=== PATIENT | female | born 1970 | race Caucasian/White ===

== ENCOUNTER 2018-04-14 06:14 | Emergency (ER) | payer BC ==
[2018-04-14] MEDS ORDERED: TORAdol 30 mg Injection ONE (06:54)
[2018-04-14] MEDS ORDERED: Zofran 4 MG/2 ML VIAL ONE (06:54)
[2018-04-14] MEDS ORDERED: Zofran 4 MG/2 ML VIAL IV ONE (06:54)
[2018-04-14] MEDS ORDERED: Sodium Chloride 0.9% 1000 ML 1,000 ML IV STA (06:54)
[2018-04-14] MEDS ORDERED: TORAdol 30 mg Injection IV ONE (06:54)
[2018-04-14] MEDS ORDERED: Sodium Chloride 0.9% 1000 ML 1,000 ML ONE (06:54)
--- NOTE | 2018-04-14 07:00 | ERPHSYRPT ---
- History of Present Illness Time Seen by Provider: 04/14/18 06:50 Source: patient Exam Limitations: no limitations Patient Subjective Stated Complaint: bladder pain and pain when trying to urinate Triage Nursing Assessment: Pt began having pain when urinating last night at approximately 2200, frequency, hematuria, pain is in bladder and urethra, drank 5 bottles of water trying to flush it out, rates pain 10/10, BP 172/105, tachycardic, appears to be in significant pain Physician History: 48 y/o female comes to the ER with complaints of dysuria, increase urgency, blood in the urine and lower abdominal discomfort that started last night. Pt describes the pain as burning, constant, 10/10, only with urination and pt has not taken any pain meds. Pt arrives with HR of 125. Pt also admits to nausea, but denies any fever, chills, vomiting, back pain, or polyuria. Timing/Duration: yesterday Activites at Onset: none Quality: burning Onset Location: suprapubic Pain Radiation: none Severity of Pain-Max: severe Severity of Pain-Current: mild Prior abdominal problems: none Sexual intercourse history: non-contributory Modifying Factors: Improves With: nothing Associated Symptoms: nausea, dysuria Allergies/Adverse Reactions: acetaminophen [From Percocet] Allergy (Verified 04/14/18 06:38) hydrocodone [From Vicodin] Allergy (Verified 04/14/18 06:38) oxycodone [From Percocet] Allergy (Verified 04/14/18 06:38) Sulfa (Sulfonamide Antibiotics) Allergy (Verified 04/14/18 06:38) sulfamethoxazole [From Bactrim] Allergy (Verified 04/14/18 06:38) trimethoprim [From Bactrim] Allergy (Verified 04/14/18 06:38) - Review of Systems Constitutional: No Fever, No Chills Eyes: No Symptoms Ears, Nose, & Throat: No Symptoms Respiratory: No Cough, No Dyspnea Cardiac: No Chest Pain, No Edema, No Syncope Abdominal/Gastrointestinal: Abdominal Pain, No Nausea, No Vomiting, No Diarrhea Genitourinary Symptoms: Dysuria, Frequency, Hematuria, Urgency, No Hesitancy, No Urinary Retention, No Flank Pain Musculoskeletal: No Back Pain, No Neck Pain Skin: No Rash Neurological: No Dizziness, No Focal Weakness, No Sensory Changes Psychological: No Symptoms Endocrine: No Symptoms All Other Systems: Reviewed and Negative - Past Medical History Pertinent Past Medical History: Yes Neurological History: No Pertinent History Cardiac History: Hypertension Respiratory History: No Pertinent History Endocrine Medical History: Hypothyroidism Musculoskeletal History: Fibromyalgia, Other Other Medical History: Per pt had echocardiogram and showed pericarditis. Not active or treated. mixed connective tissue disorder - Past Surgical History Past Surgical History: Yes Female Surgical History: Tubal Ligation - Social History Smoking Status: Never smoker Exposure to second hand smoke: Yes Drug Use: none Patient Lives Alone: No - Female History Hx Now: No - Nursing Vital Signs Nursing Vital Signs: Initial Vital Signs Temperature 99.1 F 04/14/18 06:18 Pulse Rate 125 H 04/14/18 06:18 Blood Pressure 172/105 04/14/18 06:18 O2 Sat by Pulse Oximetry 98 04/14/18 06:18 Pain Scale Pain Intensity 10 - Physical Exam General Appearance: mild distress, alert Eye Exam: PERRL/EOMI, eyes nml inspection Ears, Nose, Throat Exam: normal ENT inspection, TMs normal, pharynx normal, moist mucous membranes Neck Exam: normal inspection, non-tender, supple, full range of motion Respiratory Exam: normal breath sounds, lungs clear, No respiratory distress Cardiovascular Exam: regular rate/rhythm, normal heart sounds, normal peripheral pulses Gastrointestinal/Abdomen Exam: soft, normal bowel sounds, No tenderness, No distention, No mass, No guarding Back Exam: normal inspection, normal range of motion, No CVA tenderness, No vertebral tenderness Extremity Exam: normal inspection, normal range of motion, pelvis stable Neurologic Exam: alert, oriented x 3, cooperative, 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, normal mood/affect, sensation nml, No motor deficits Skin Exam: normal color, warm, dry Lymphatic Exam: No adenopathy SpO2: 98 Oxygen Delivery: Room Air - Course Nursing assessment & vital signs reviewed: Yes Ordered Tests: Active Orders 24 hr Category Date Time Status IV Insertion STAT Care 04/14/18 06:54 Active CBC W DIFF Stat Lab 04/14/18 06:38 Completed CMP Stat Lab 04/14/18 06:38 Completed CULTURE,URINE Stat Lab 04/14/18 07:42 Received HCG QUALITATIVE,SERUM Stat Lab 04/14/18 06:38 Completed Manual Differential NC Stat Lab 04/14/18 06:38 Completed UA W/ MICROSCOPIC Stat Lab 04/14/18 07:42 Completed Medication Summary Generic Name Dose Route Start Last Admin Trade Name Trenton PRN Reason Stop Dose Admin Ceftriaxone Sodium/Dextrose 1 g in 50 mls @ 100 mls/hr 04/14/18 08:25 Rocephin 1 Gm-D5w 50 Ml Bag IV 04/14/18 08:54 STAT STA Discontinued Medications Generic Name Dose Route Start Last Admin Trade Name Trenton PRN Reason Stop Dose Admin Sodium Chloride 1,000 mls @ 999 mls/hr 04/14/18 06:54 04/14/18 06:56 Sodium Chloride 0.9% 1000 Ml IV 04/14/18 07:54 999 mls/hr .Q1H1M STA Administration Sodium Chloride Confirm 04/14/18 06:54 Sodium Chloride 0.9% 1000 Ml Administered 04/14/18 06:55 Dose 1,000 mls @ ud .ROUTE .STK-MED ONE Ketorolac Tromethamine 30 mg 04/14/18 06:54 04/14/18 06:56 Toradol 30 Mg Injection IV 04/14/18 06:55 30 mg STAT ONE Administration Ketorolac Tromethamine Confirm 04/14/18 06:54 Toradol 30 Mg Injection Administered 04/14/18 06:55 Dose 30 mg .ROUTE .STK-MED ONE Ondansetron HCl 4 mg 04/14/18 06:54 04/14/18 06:56 Zofran 4 Mg/2 Ml Vial IV 04/14/18 06:55 4 mg STAT ONE Administration Ondansetron HCl Confirm 04/14/18 06:54 Zofran 4 Mg/2 Ml Vial Administered 04/14/18 06:55 Dose 4 mg .ROUTE .STK-MED ONE Lab/Rad Data: Laboratory Result Diagrams 04/14/18 06:38 04/14/18 06:38 Laboratory Results 04/14/18 04/14/18 04/14/18 Range/Units 07:42 06:38 06:38 WBC (4.0-10.5) K/mm3 RBC (4.1-5.4) M/mm3 Hgb (12.0-16.0) gm/dl Hct (35-47) % MCV (78-100) fl MCH (26-32) pg MCHC (32-36) g/dl RDW (11.5-14.0) % Plt Count (150-450) K/mm3 MPV (6-9.5) fl Segmented Neutrophils (36.0-66.0) % Band Neutrophils (0.0-2.0) % Lymphocytes (Manual) (24-44) % Monocytes (Manual) (0.0-12.0) % Eosinophils (Manual) (0.00-3.0) % Platelet Estimate (NORMAL) RBC Morphology Sodium 134 L (137-145) mmol/L Potassium 3.7 (3.5-5.1) mmol/L Chloride 97 L (98-107) mmol/L Carbon Dioxide 22 (22-30) mmol/L Anion Gap 18.7 H (5-15) MEQ/L BUN 11 (7-17) mg/dL Creatinine 0.90 (0.52-1.04) mg/dL Estimated GFR > 60.0 ML/MIN Glucose 127 H (74-106) mg/dL Calcium 9.1 (8.4-10.2) mg/dL Total Bilirubin 0.40 (0.2-1.3) mg/dL AST 29 (14-36) U/L ALT 32 (0-35) U/L Alkaline Phosphatase 143 H (38-126) U/L Serum Total Protein 8.1 (6.3-8.2) g/dL Albumin 4.7 (3.5-5.0) g/dL Serum , Qual NEGATIVE (Negative) Ur Collection Type CLEAN CATCH Urine Color DARK YELLOW (YELLOW) Urine Appearance CLOUDY (CLEAR) Urine pH 5.0 (5-6) Ur Specific Parker 1.015 (1.005-1.025) Urine Protein 500 (Negative) Urine Ketones TRACE (NEGATIVE) Urine Blood 250 (0-5) Ruben/ul Urine Nitrite NEGATIVE (NEGATIVE) Urine Bilirubin NEGATIVE (NEGATIVE) Urine Urobilinogen NORMAL (0-1) mg/dL Ur Leukocyte Esterase 2+ (NEGATIVE) Urine Microscopic RBC >100 (0-2) /HPF Urine Microscopic WBC >100 (0-5) /HPF Ur Epithelial Cells FEW (FEW) /HPF Urine Bacteria MANY (NEGATIVE) /HPF Urine Culture Reflexed YES (NO) Urine Glucose NEGATIVE (NEGATIVE) mg/dL Specimen Received 04/14/18 0730 09/09/18 Range/Units 06:38 WBC 21.5 H (4.0-10.5) K/mm3 RBC 4.45 (4.1-5.4) M/mm3 Hgb 13.5 (12.0-16.0) gm/dl Hct 39.5 (35-47) % MCV 88.8 (78-100) fl MCH 30.3 (26-32) pg MCHC 34.2 (32-36) g/dl RDW 12.9 (11.5-14.0) % Plt Count 343 (150-450) K/mm3 MPV 8.5 (6-9.5) fl Segmented Neutrophils 87 H (36.0-66.0) % Band Neutrophils 2 (0.0-2.0) % Lymphocytes (Manual) 7 L (24-44) % Monocytes (Manual) 2 (0.0-12.0) % Eosinophils (Manual) 2 (0.00-3.0) % Platelet Estimate NORMAL (NORMAL) RBC Morphology NORMAL Sodium (137-145) mmol/L Potassium (3.5-5.1) mmol/L Chloride (98-107) mmol/L Carbon Dioxide (22-30) mmol/L Anion Gap (5-15) MEQ/L BUN (7-17) mg/dL Creatinine (0.52-1.04) mg/dL Estimated GFR ML/MIN Glucose (74-106) mg/dL Calcium (8.4-10.2) mg/dL Total Bilirubin (0.2-1.3) mg/dL AST (14-36) U/L ALT (0-35) U/L Alkaline Phosphatase (38-126) U/L Serum Total Protein (6.3-8.2) g/dL Albumin (3.5-5.0) g/dL Serum , Qual (Negative) Ur Collection Type Urine Color (YELLOW) Urine Appearance (CLEAR) Urine pH (5-6) Ur Specific Parker (1.005-1.025) Urine Protein (Negative) Urine Ketones (NEGATIVE) Urine Blood (0-5) Ruben/ul Urine Nitrite (NEGATIVE) Urine Bilirubin (NEGATIVE) Urine Urobilinogen (0-1) mg/dL Ur Leukocyte Esterase (NEGATIVE) Urine Microscopic RBC (0-2) /HPF Urine Microscopic WBC (0-5) /HPF Ur Epithelial Cells (FEW) /HPF Urine Bacteria (NEGATIVE) /HPF Urine Culture Reflexed (NO) Urine Glucose (NEGATIVE) mg/dL Specimen Received - Progress Progress: improved Progress Note: 04/14/18 08:30 The patient feels better after receiving NS fluids, zofran and toradol. Pt has a UTI. Pt has a white count of 21,000, but no fever, pain is well controlled and has no nausea with vomiting. Pt will be given rocephin 1 gram IV X 1 dose and will be given a script for 7 days of cipro. Pt was advised to return to the ER if she should have any fever, chills, abdominal or back pain, nausea or vomiting. - Departure Time of Disposition: 08:32 Departure Disposition: Home Clinical Impression: UTI (urinary tract infection) Qualifiers: Urinary tract infection type: site unspecified Hematuria presence: with hematuria Qualified Code(s): N39.0 - Urinary tract infection, site not specified ; R31.9 - Hematuria, unspecified Condition: Stable Critical Care Time: No Referrals: JAVI MAGUIRE [Primary Care Provider] - Instructions: Urinary Tract Infection, Adult (DC) Additional Instructions: Return to the ER if you should have fever, chills, abdominal or back pain, nausea or vomiting. Complete antibiotics for the full 7 days. Prescriptions: Ciprofloxacin HCl [Cipro] 500 mg PO BID #14 tablet
[2018-04-14 07:02] LABS: Hematocrit 39.5 % (35-47); Hemoglobin 13.5 gm/dl (12.0-16.0); Mean Cell Volume 88.8 fl (78-100); Mean Corpuscular Hemoglobin 30.3 pg (26-32); Mean Corpuscular Hgb Concent. 34.2 g/dl (32-36); Mean Platelet Volume 8.5 fl (6-9.5); Platelet Count 343 K/mm3 (150-450); Red Blood Count 4.45 M/mm3 (4.1-5.4); Red Cell Distribution Width 12.9 % (11.5-14.0); White Blood Count 21.5 K/mm3 (4.0-10.5)
[2018-04-14 07:09] LABS: ALBUMIN 4.7 g/dL (3.5-5.0); ALKALINE PHOSPHATASE 143 U/L (38-126); ANION GAP 18.7 MEQ/L (5-15); BLOOD UREA NITROGEN 11 mg/dL (7-17); CHLORIDE 97 mmol/L (98-107); Calcium 9.1 mg/dL (8.4-10.2); Carbon Dioxide 22 mmol/L (22-30); Glucose 127 mg/dL (74-106); Potassium 3.7 mmol/L (3.5-5.1); SGOT/AST 29 U/L (14-36); SODIUM 134 mmol/L (137-145); Total Protein 8.1 g/dL (6.3-8.2)
[2018-04-14 07:15] LABS: SGPT/ALT 32 U/L (0-35)
[2018-04-14 07:23] LABS: BAND 2 % (0.0-2.0); Eosinophil 2 % (0.00-3.0); Lymphocytes 7 % (24-44); Monocyte 2 % (0.0-12.0); Neutrophils 87 % (36.0-66.0); Platelet Estimate NORMAL (NORMAL); Total Cells Counted 100
[2018-04-14 07:46] LABS: Appearance CLOUDY (CLEAR); Bilirubin NEGATIVE (NEGATIVE); Glucose NEGATIVE (NEGATIVE); Ketones TRACE (NEGATIVE); Leukocyte Esterase 2+ (NEGATIVE); Nitrite NEGATIVE (NEGATIVE); Protein,Urine Dip 500 (Negative); Specific Gravity 1.015 (1.005-1.025); Urobilinogen NORMAL mg/dL (0-1)
[2018-04-14 07:47] LABS: Blood 250 Ery/ul (0-5)
[2018-04-14 07:50] LABS: Bacteria MANY /HPF (NEGATIVE); Epithelial Cells FEW /HPF (FEW); RBC >100 /HPF (0-2); WBC >100 /HPF (0-5)
[2018-04-14 08:24] VITALS: BP 123/80; PULSE 102
[2018-04-14] MEDS ORDERED: ROCEPHIN 1 Gm-D5w 50 ml Bag** 1 G/50 ML IVPB IV STA (08:25)
[2018-04-14] MEDS ORDERED: ROCEPHIN 1 Gm-D5w 50 ml Bag** 1 G/50 ML IVPB IV ONE (08:31)
[2018-04-14 08:35] VITALS: O2SAT 98
== END 2018-04-14 09:07 | disposition home or self-care (01) ==
LOC: ED 06:14
DX: N39.0 Urinary tract infection, site not specified (principal)
CPT/HCPCS: 36000; 36415; 80053; 81000; 84703; 85025; 87086; 96360; 96365; 96374; 96375; 99284; J0696; J1885; J2405

== ENCOUNTER 2019-05-08 15:23 | Emergency (ER) | payer BC ==
[2019-05-08] MEDS ORDERED: Rocephin 1000 MG INJ IM ONE (16:46)
[2019-05-08] MEDS ORDERED: PYRIDIUM 200 MG PO ONE (16:47)
[2019-05-08] MEDS ORDERED: PYRIDIUM 200 MG ONE (16:56)
[2019-05-08] MEDS ORDERED: XYLOCAINE 1% HCL 20 ML MDV ONE (16:57)
[2019-05-08] MEDS ORDERED: Rocephin 1000 MG INJ ONE (16:57)
[2019-05-08 17:02] LABS: Appearance CLOUDY (CLEAR); Bacteria MODERATE /HPF (NEGATIVE); Bilirubin NEGATIVE (NEGATIVE); Blood LARGE Ery/ul (0-5); Glucose NEGATIVE (NEGATIVE); Ketones NEGATIVE (NEGATIVE); Leukocyte Esterase MODERATE (NEGATIVE); Nitrite NEGATIVE (NEGATIVE); Protein,Urine Dip 100 (Negative); Specific Gravity 1.011 (1.005-1.025); Urobilinogen NEGATIVE mg/dL (0-1); WBC >100 /HPF (0-5)
[2019-05-08 17:03] LABS: RBC >101 /HPF (0-2)
--- NOTE | 2019-05-08 17:20 | XRAY ---
Indication: Suprapubic pain/pressure. Multiple contiguous axial images obtained through the abdomen and pelvis without contrast as ordered. Comparison: CT renal stone study September 07, 2015. Lung bases remain clear of infiltrate or effusion. Stable minimal lingula fibrosis/scarring. Heart is not enlarged. Stable small hiatal hernia. Noncontrasted stomach and bowel loops appear nonobstructed. Normal appendix. No free fluid/air. Liver now demonstrates mild diffuse fatty attenuation. Stable nonobstructing 8 mm right renal calculus. Remaining liver, gallbladder, pancreas, spleen, adrenal glands, kidneys, ureters, bladder, uterus, and ureter appear unremarkable for noncontrast exam. Osseous structures intact. Impression: 1. Small hiatal hernia, fatty liver, and nonobstructing right renal calculus. 2. Remaining CT abdomen/pelvis without contrast exam is negative. CTDI 22.51
--- NOTE | 2019-05-08 17:56 | ERPHSYRPT ---
- History of Present Illness Time Seen by Provider: 05/08/19 15:40 Historian: patient Exam Limitations: no limitations Patient Subjective Stated Complaint: "Last night I took a bubble bath and following that I had urinary urgency and pain. Woke up this morning and urine has a lot of red blood in it and my pain has increased to a 10/10 scale." Triage Nursing Assessment: Pt is alert and oriented x 4, ambulates and communicates normally. Appears to be in pain. Pt has urinary urgency, painful urination, and hematuria. Pt complains of 10/10 pain and nausea with pain. Denies shob, chest pain, vomiting, or diarrhea. States pain started last night after a bath and got worse today. Physician History: 49 y/o white female presents with suprapubic tenderness, frequency, urgency and hematuria for less than one day. pt seen at urgent care this am and given rx of nitrofurantoin. pt has taken one dose. sx were initially worse but upon arrival to ED pt sx mildly improved. pt took an over the counter pyridium. Timing/Duration: yesterday Activities at Onset: none Quality: burning, pressure Abdominal Pain Onset Location: suprapubic Pain Radiation: no radiation Severity of Pain-Max: moderate Severity of Pain-Current: mild Modifying Factors: Improves With: urinating Associated Symptoms: No back, No fever/chills, No nausea, No vomiting Previous symptoms: no prior history Allergies/Adverse Reactions: acetaminophen [From Percocet] Allergy (Verified 08/15/18 12:05) hydrocodone [From Vicodin] Allergy (Verified 08/15/18 12:05) oxycodone [From Percocet] Allergy (Verified 08/15/18 12:05) Sulfa (Sulfonamide Antibiotics) Allergy (Verified 08/15/18 12:05) sulfamethoxazole [From Bactrim] Allergy (Verified 08/15/18 12:05) trimethoprim [From Bactrim] Allergy (Verified 08/15/18 12:05) Home Medications: Duloxetine HCl 90 mg PO DAILY 08/15/18 [History] Furosemide 20 mg [Lasix 20 mg] 20 mg PO DAILY 08/15/18 [History] Lisinopril 20 mg PO DAILY 08/15/18 [History] Naproxen Sodium 220 mg [Aleve 220 MG] 2 tab PO DAILY PRN 08/15/18 [History ] Thyroid,Pork [Thyroid] 90 mg PO DAILY 08/15/18 [History] Tramadol HCl 50 mg [Ultram 50 mg] 50 mg PO TIDPRN PRN 08/15/18 [History] Metoprolol Succinate 25 mg PO DAILY 05/08/19 [History] Nitrofurantoin Macrocrystal [Nitrofurantoin] 100 mg PO Q12H 05/08/19 [History] Pravastatin Sodium 10 mg PO DAILY 05/08/19 [History] Hx Tetanus, Diphtheria Vaccination/Date Given: No Hx Influenza Vaccination/Date Given: No Hx Pneumococcal Vaccination/Date Given: No Immunizations Up to Date: No - Review of Systems Constitutional: No Symptoms Eyes: No Symptoms Ears, Nose, & Throat: No Symptoms Respiratory: No Symptoms Cardiac: No Symptoms Abdominal/Gastrointestinal: Abdominal Pain (suprapubic tenderness) Genitourinary Symptoms: Dysuria, Frequency, Hematuria, Urgency, No Flank Pain Musculoskeletal: No Symptoms Skin: No Symptoms Neurological: No Symptoms Psychological: No Symptoms Endocrine: No Symptoms Hematologic/Lymphatic: No Symptoms Immunological/Allergic: No Symptoms All Other Systems: Reviewed and Negative - Past Medical History Pertinent Past Medical History: Yes Neurological History: No Pertinent History ENT History: No Pertinent History Cardiac History: Hypertension Respiratory History: Bronchitis Endocrine Medical History: Diabetes Type II, Hyperthyroidism Musculoskeletal History: Fibromyalgia GI Medical History: No Pertinent History History: No Pertinent History Psycho-Social History: No Pertinent History Female Reproductive Disorders: No Pertinent History Other Medical History: Per pt had echocardiogram and showed pericarditis. Not active or treated. mixed connective tissue disorder - Past Surgical History Past Surgical History: Yes Neuro Surgical History: No Pertinent History Cardiac: No Pertinent History Respiratory: No Pertinent History Gastrointestinal: No Pertinent History Genitourinary: No Pertinent History Musculoskeletal: No Pertinent History Female Surgical History: Tubal Ligation - Social History Smoking Status: Never smoker Exposure to second hand smoke: Yes Drug Use: none Patient Lives Alone: No - Female History Hx Last Menstrual Period: 15 years ago, hx of tubal ligation Hx Now: No - Nursing Vital Signs Nursing Vital Signs: Initial Vital Signs Temperature 98.1 F 05/08/19 15:35 Pulse Rate 100 H 05/08/19 15:35 Respiratory Rate 20 05/08/19 15:35 Blood Pressure 165/105 05/08/19 15:35 O2 Sat by Pulse Oximetry 97 05/08/19 15:35 Pain Scale Pain Intensity 2 - Physical Exam General Appearance: mild distress, alert, anxiety Eye Exam: PERRL/EOMI Ears, Nose, Throat Exam: normal ENT inspection, moist mucous membranes Neck Exam: normal inspection, non-tender, supple, full range of motion Respiratory Exam: normal breath sounds, lungs clear, airway intact, No chest tenderness, No respiratory distress Cardiovascular Exam: regular rate/rhythm, normal heart sounds, normal peripheral pulses Gastrointestinal/Abdomen Exam: soft, normal bowel sounds, tenderness (suprapubic ), guarding, No rebound Pelvic Exam: not done Rectal Exam: not done Back Exam: normal inspection, normal range of motion, No CVA tenderness, No vertebral tenderness Extremity Exam: normal inspection, normal range of motion, pelvis stable Neurologic Exam: alert, oriented x 3, cooperative, 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 Skin Exam: normal color, warm, dry Lymphatic Exam: No adenopathy SpO2 Interpretation: normal SpO2: 96 O2 Delivery: Room Air Ordered Tests: Active Orders 24 hr Category Date Time Status ABDOMEN AND PELVIS W/0 CONTRAS [CT] Stat Exams 05/08/19 16:45 Completed CULTURE,URINE Stat Lab 05/08/19 16:19 Received UA W/RFX UR CULTURE Stat Lab 05/08/19 16:19 Completed Medication Summary Discontinued Medications Generic Name Dose Route Start Last Admin Trade Name Freq PRN Reason Stop Dose Admin Ceftriaxone Sodium 1,000 mg 05/08/19 16:46 05/08/19 17:05 Rocephin 1000 Mg Inj IM 05/08/19 16:47 1,000 mg STAT ONE Administration Ceftriaxone Sodium Confirm 05/08/19 16:57 Rocephin 1000 Mg Inj Administered 05/08/19 16:58 Dose 1,000 mg .ROUTE .STK-MED ONE Lidocaine HCl Confirm 05/08/19 16:57 Xylocaine 1% Hcl 20 Ml Mdv Administered 05/08/19 16:58 Dose 3 ml .ROUTE .STK-MED ONE Phenazopyridine HCl 200 mg 05/08/19 16:47 05/08/19 17:05 Pyridium 200 Mg PO 05/08/19 16:48 200 mg STAT ONE Administration Phenazopyridine HCl Confirm 05/08/19 16:56 Pyridium 200 Mg Administered 05/08/19 16:57 Dose 200 mg .ROUTE .STK-MED ONE Lab/Rad Data: Laboratory Results 05/08/19 Range/Units 16:19 Urine Color VALERIANO (YELLOW) Urine Appearance CLOUDY (CLEAR) Urine pH 6.0 (5-6) Ur Specific Stickney 1.011 (1.005-1.025) Urine Protein 100 (Negative) Urine Ketones NEGATIVE (NEGATIVE) Urine Blood LARGE (0-5) Ruben/ul Urine Nitrite NEGATIVE (NEGATIVE) Urine Bilirubin NEGATIVE (NEGATIVE) Urine Urobilinogen NEGATIVE (0-1) mg/dL Ur Leukocyte Esterase MODERATE (NEGATIVE) Urine WBC (Auto) >100 (0-5) /HPF Urine RBC (Auto) >101 (0-2) /HPF U Epithel Cells (Auto) NONE (FEW) /HPF Urine Bacteria (Auto) MODERATE (NEGATIVE) /HPF Urine Culture Reflexed YES (NO) Urine Glucose NEGATIVE (NEGATIVE) mg/dL - Progress Progress: improved Progress Note: 05/08/19 17:57 ct abd/pelvis-no acute process. Counseled pt/family regarding: lab results, diagnosis, need for follow-up, rad results - Departure Departure Disposition: Home Clinical Impression: UTI (urinary tract infection) Condition: Stable Critical Care Time: No Referrals: JAVI MAGUIRE [Primary Care Provider] - Additional Instructions: drink plenty of fluids. follow up with primary doctor for further management. take medications as prescribed. Prescriptions: Phenazopyridine HCl 200 mg [Pyridium 200 mg] 200 mg PO TID #6 tablet
[2019-05-08 18:02] VITALS: BP 147/96; PULSE 75; O2SAT 99
== END 2019-05-08 18:13 | disposition home or self-care (01) ==
LOC: ED 15:23
DX: N39.0 Urinary tract infection, site not specified (principal)
CPT/HCPCS: 74176; 81001; 87086; 96372; 99284; J0696; A9270-GY

== ENCOUNTER 2023-11-22 17:56 | Emergency (ER) | payer BC ==
[2023-11-22 18:18] VITALS: TEMP 97.8
[2023-11-22] MEDS ORDERED: Sodium Chloride 0.9% 1000 ML 1,000 ML ONE (18:45)
[2023-11-22] MEDS: Sodium Chloride 0.9% 1000 ML 1,000 ML IV STA (18:49)
--- NOTE | 2023-11-22 18:49 | ERPHSYRPT ---
- History of Present Illness Time Seen by Provider: 11/22/23 18:31 Historian: patient Exam Limitations: no limitations Patient Subjective Stated Complaint: pt here lower right abd pain today with dribbling,frequency, no fever, some loose stools. Triage Nursing Assessment: pt walked in, resp easy, holding abd at times, skin w/d/p. abd soft, no edema noted, moves all ext well Physician History: 53 years old female with history of hypertension, hyperlipidemia presented in the ER with complaint of sudden onset right flank/right lower quadrant pain few hours ago, moderate to severe sharp with associated increase urinary frequency/urge with some dribbling but no hematuria. Patient denies associated nausea or vomiting but does report having loose stool. No fever or chills reported. No history of kidney stones. Patient reports her pain started to improve on its own on presentation in the ER and currently having minimal discomfort. Allergies/Adverse Reactions: acetaminophen [From Percocet] Allergy (Verified 11/22/23 18:05) hydrocodone [From Vicodin] Allergy (Verified 11/22/23 18:05) oxycodone [From Percocet] Allergy (Verified 11/22/23 18:05) Sulfa (Sulfonamide Antibiotics) Allergy (Verified 11/22/23 18:05) sulfamethoxazole [From Bactrim] Allergy (Verified 11/22/23 18:05) trimethoprim [From Bactrim] Allergy (Verified 11/22/23 18:05) Home Medications: Duloxetine HCl 90 mg PO DAILY 08/15/18 [History] Furosemide 20 mg [Lasix 20 mg] 20 mg PO DAILY 08/15/18 [History] Thyroid,Pork [Thyroid] 90 mg PO DAILY 08/15/18 [History] lisinopriL [Lisinopril] 12.5 mg PO DAILY 08/15/18 [History] Metoprolol Succinate 25 mg PO DAILY 05/08/19 [History] Hydroxyzine HCl 25 mg [Atarax 25 mg] 25 mg PO TID 11/13/22 [History] Potassium Citrate [Potassium] 99 mg PO DAILY 11/13/22 [History] Tizanidine HCl 4 mg [Zanaflex 4 MG] 4 mg PO TID 11/13/22 [History] Atorvastatin Calcium [Lipitor 20MG Tablet] 20 mg PO DAILY 11/22/23 [History] Hx Tetanus, Diphtheria Vaccination/Date Given: No Hx Influenza Vaccination/Date Given: No Hx Pneumococcal Vaccination/Date Given: No Immunizations Up to Date: Yes Travel Risk - International Travel Have you traveled outside of the country in past 3 weeks: No - Emerging Infectious Disease Are you exhibiting symptoms associated with any current EIDs: Yes Symptoms: Abdominal Pain - Review of Systems Constitutional: No Symptoms Eyes: No Symptoms Ears, Nose, & Throat: No Symptoms Respiratory: No Symptoms Cardiac: No Symptoms Abdominal/Gastrointestinal: Abdominal Pain, Diarrhea Genitourinary Symptoms: Frequency, Urgency, Flank Pain Musculoskeletal: No Symptoms Skin: No Symptoms Neurological: No Symptoms Endocrine: No Symptoms Hematologic/Lymphatic: No Symptoms - Past Medical History Pertinent Past Medical History: Yes Neurological History: No Pertinent History Cardiac History: High Cholesterol, Hypertension Respiratory History: Bronchitis Endocrine Medical History: Diabetes Type II, Hyperthyroidism Musculoskeletal History: Fibromyalgia, Other Other Medical History: Per pt had echocardiogram and showed pericarditis. Not active or treated. mixed connective tissue disorder,lupus - Past Surgical History Past Surgical History: Yes Female Surgical History: Tubal Ligation - Female History Hx Last Menstrual Period: post Hx Now: No - Social History Smoking Status: Current some day smoker How long have you smoked: 1/2 Exposure to second hand smoke: Yes Drug Use: marijuana Patient Lives Alone: No - Nursing Vital Signs Nursing Vital Signs: Initial Vital Signs Temperature 97.8 F 11/22/23 18:17 Pulse Rate 89 11/22/23 18:17 Respiratory Rate 16 11/22/23 18:17 Blood Pressure 161/101 11/22/23 18:17 O2 Sat by Pulse Oximetry 94 L 11/22/23 18:17 Pain Scale Pain Intensity 0 - Physical Exam General Appearance: no apparent distress, alert Eye Exam: PERRL/EOMI Ears, Nose, Throat Exam: normal ENT inspection Neck Exam: normal inspection, full range of motion Respiratory Exam: normal breath sounds, lungs clear Cardiovascular Exam: regular rate/rhythm, normal heart sounds Gastrointestinal/Abdomen Exam: normal bowel sounds, tenderness (Right lower quadrant with no guarding or rebound) Back Exam: normal inspection Extremity Exam: normal inspection, normal range of motion Neurologic Exam: alert, oriented x 3, cooperative Skin Exam: normal color SpO2 Interpretation: normal SpO2: 94 O2 Delivery: Room Air Ordered Tests: Active Orders 24 hr Category Date Time Status IV Insertion STAT Care 11/22/23 18:31 Active ABDOMEN AND PELVIS W CONTRAST [CT] Stat Exams 11/22/23 19:21 Taken CBC W DIFF Stat Lab 11/22/23 18:48 Completed CMP Stat Lab 11/22/23 18:48 Completed LIPASE Stat Lab 11/22/23 18:48 Completed UA W/RFX UR CULTURE Stat Lab 11/22/23 18:35 Completed Medication Summary Discontinued Medications Generic Name Dose Route Start Last Admin Trade Name [place] PRN Reason Stop Dose Admin Cephalexin HCl 500 mg 11/22/23 20:20 Cephalexin Mh500 Mg Capsule PO 11/22/23 20:21 STAT ONE Sodium Chloride 1,000 mls @ 999 mls/hr 11/22/23 18:31 11/22/23 20:10 Sodium Chloride 0.9% 1000 Ml IV 11/22/23 19:31 Infused .Q1H1M STA Infusion Sodium Chloride Confirm 11/22/23 18:45 Sodium Chloride 0.9% 1000 Ml Administered 11/22/23 18:46 Dose 1,000 mls @ ud .ROUTE .STK-MED ONE Lab/Rad Data: Laboratory Result Diagrams 11/22/23 18:48 11/22/23 18:48 Laboratory Results 11/22/23 11/22/23 11/22/23 Range/Units 18:48 18:48 18:35 WBC 14.1 H (4.0-10.5) x10^3/uL RBC 4.20 (4.1-5.4) x10^6/uL Hgb 12.6 (12.0-16.0) g/dL Hct 36.9 (35-47) % MCV 87.9 (78-100) fL MCH 30.0 (26-32) pg MCHC 34.1 (32-36) g/dL RDW 12.3 (11.5-14.0) % Plt Count 294 (150-450) x10^3/uL MPV 8.5 (7.5-11.0) fL Gran % 61.6 (36.0-66.0) % Immature Gran % (Auto) 0.4 (0.00-0.4) % Nucleat RBC Rel Count 0.0 (0.00-0.1) % Eos # (Auto) 0.63 H (0-0.5) x10^3/uL Immature Gran # (Auto) 0.05 H (0.00-0.03) x10^3u/L Absolute Lymphs (auto) 3.67 (1.0-4.6) x10^3/uL Absolute Monos (auto) 0.98 (0.0-1.3) x10^3/uL Absolute Nucleated RBC 0.00 (0.00-0.01) x10^3u/L Lymphocytes % 26.1 (24.0-44.0) % Monocytes % 7.0 (0.0-12.0) % Eosinophils % 4.5 (0.00-5.0) % Basophils % 0.4 (0.0-0.4) % Absolute Granulocytes 8.67 H (1.4-6.9) x10^3/uL Basophils # 0.06 (0-0.4) x10^3/uL Sodium 139 (135-145) mmol/L Potassium 3.3 L (3.5-5.1) mmol/L Chloride 104 (98-107) mmol/L Carbon Dioxide 30 (22-30) mmol/L Anion Gap 9.1 (5-15) MEQ/L BUN 13 (7-17) mg/dL Creatinine 0.97 (0.52-1.04) mg/dL Estimated GFR 69.9 ML/MIN Glucose 110 H (74-106) mg/dL Calcium 9.5 (8.4-10.2) mg/dL Total Bilirubin 0.20 (0.2-1.3) mg/dL AST 41 H (14-36) U/L ALT 45 H (0-35) U/L Alkaline Phosphatase 95 (38-126) U/L Serum Total Protein 6.8 (6.3-8.2) g/dL Albumin 3.8 (3.5-5.0) g/dL Lipase 155 (23-300) U/L Urine Color Yellow (Yellow) Urine Appearance Cloudy A (Clear) Urine pH 6.0 (4.6-8.0) Ur Specific [place] 1.010 (1.005-1.030) Urine Protein Negative (Negative) Urine Glucose (UA) Negative (Negative) mg/dL Urine Ketones Negative (Negative) Urine Blood Negative (Negative) Urine Nitrite Negative (Negative) Urine Bilirubin Negative (Negative) Urine Urobilinogen 0.2 (0.2) mg/dL Ur Leukocyte Esterase Negative (Negative) U Hyaline Cast (Auto) NONE SEEN (0-2) /LPF Urine Microscopic RBC 0-2 (0-5) /HPF Urine Microscopic WBC 6-10 A (0-5) /HPF Ur Epithelial Cells Rare (None Seen) /HPF Urine Bacteria Few A (None Seen) /HPF Urine Culture Reflexed NO (NO) - Progress Progress: improved Progress Note: 11/22/23 20:36 53 years old is evaluated for left flank pain with some UTI symptoms. Patient does not want any pain medications. She has some tenderness in the right flan k/right lower quadrant area. She is given fluids, workup showed white count of 14, fairly unremarkable chemistries except for some elevation in transaminases. She has normal lipase. She has some element of UTI and is given a dose of Keflex. I have obtained CT abdomen pelvis with contrast which is negative for obstructive stone, does have some small microscopic stones in the kidney and no other acute findings per preliminary report, official final report is pending. On reevaluation patient is feeling much improved and abdominal exam is improved as well. She might have some element of viral gastroenteritis versus recently passed stone which seems less likely as her urinalysis not consistent with stone. She is nontoxic, do not think she needs any other workup, she can be discharged with outpatient follow-up. Discussed signs symptoms of worsening needing return to ER which she seems understanding. Counseled pt/family regarding: lab results, diagnosis, need for follow-up, rad results Medical Desision Making - Independent Historian Additional History obtained from: Spouse - Diagnostic Testing Diagnostic test were ordered, analyzed, and reviewed by me: Yes Radiological Interpretation: Interpreted by me, Reviewed by me - Risk of complications The pt has a mod risk of morbidity or mortality based on: Need for prescription drug management - Departure Departure Disposition: Home Clinical Impression: UTI (urinary tract infection), Right sided abdominal pain Condition: Stable Critical Care Time: No Referrals: JIA TOUSSAINT DO [Primary Care Provider] - Follow up with PCP 1 day Instructions: Urinary Tract Infection, Adult (DC), Severe Abdominal Pain, Adult (DC) Additional Instructions: Take Tylenol/ibuprofen as needed for pain. Drink plenty of fluids to keep yourself well-hydrated. Follow-up with primary care for reevaluation. Return to ER for intractable pain/diarrhea/fever chills or worsening of UTI symptoms. Prescriptions: Cephalexin Mh 500 mg [Keflex 500 mg] 500 mg PO TID #21 cap
[2023-11-22 18:51] LABS: Absolute Neutrophil Ct (ANC) 8.67 x10^3/uL (1.4-6.9); BASOPHIL % 0.4 % (0.0-0.4); Basophil (Absolute #) 0.06 x10^3/uL (0-0.4); Eosinophil % 4.5 % (0.00-5.0); Eosinophil (Absolute #) 0.63 x10^3/uL (0-0.5); Hematocrit 36.9 % (35-47); Hemoglobin 12.6 g/dL (12.0-16.0); IMMATURE GRAN # 0.05 x10^3u/L (0.00-0.03); IMMATURE GRAN % 0.4 % (0.00-0.4); Lymphocyte (Absolute #) 3.67 x10^3/uL (1.0-4.6); Lymphocytes % 26.1 % (24.0-44.0); Mean Cell Volume 87.9 fL (78-100); Mean Corpuscular Hgb Concent. 34.1 g/dL (32-36); Mean Platelet Volume 8.5 fL (7.5-11.0); Monocyte (Absolute #) 0.98 x10^3/uL (0.0-1.3); Neutrophil % 61.6 % (36.0-66.0); Platelet Count 294 x10^3/uL (150-450); Red Cell Distribution Width 12.3 % (11.5-14.0); White Blood Count 14.1 x10^3/uL (4.0-10.5)
[2023-11-22 19:04] LABS: ALBUMIN 3.8 g/dL (3.5-5.0); ANION GAP 9.1 MEQ/L (5-15); BILIRUBIN,TOTAL 0.2 mg/dL (0.2-1.3); Calcium 9.5 mg/dL (8.4-10.2); Creatinine 1 0.97 mg/dL (0.52-1.04); EST GLOMERULAR FILTRATION RATE 69.9 ML/MIN; Potassium 3.3 mmol/L (3.5-5.1); Total Protein 6.8 g/dL (6.3-8.2)
[2023-11-22 19:08] LABS: Appearance Cloudy (Clear); Bacteria Few /HPF (None Seen); Bilirubin Negative (Negative); Blood Negative (Negative); Epithelial Cells Rare /HPF (None Seen); Glucose, Urine Negative (Negative); Hyaline Casts NONE SEEN /LPF (0-2); Ketones Negative (Negative); Leukocyte Esterase Negative (Negative); Nitrite Negative (Negative); Protein,Urine Dip Negative (Negative); RBC 0-2 /HPF (0-5); Urobilinogen 0.2 mg/dL (0.2)
[2023-11-22 19:15] LABS: ADD URINE CULTURE? NO (NO)
[2023-11-22 20:05] VITALS: BP 123/75; PULSE 71; RESP 18
[2023-11-22] MEDS ORDERED: KEFLEX 500 MG ONE (20:38)
[2023-11-22] MEDS: KEFLEX 500 MG PO ONE (20:39)
[2023-11-22 20:40] VITALS: O2SAT 94
--- NOTE | 2023-11-23 08:46 | XRAY ---
Indication: Right lower quadrant/flank pain. UTI. Multiple contiguous axial images obtained through the abdomen and pelvis using 80 cc Isovue 370 contrast. Comparison: May 08, 2019 Lung bases demonstrates new 1.3 cm left lower lobe calcified granuloma. No infiltrate or effusion. Heart not enlarged. Stable small hiatal hernia. Stomach is now distended with food/fluid. Noncontrasted stomach and bowel loops appear nonobstructed again with normal appendix. Partially contracted gallbladder without gallstones. No free fluid/air. Both kidneys enhance and excrete. Stable 6 mm nonobstructing right renal calculus. Remaining liver, gallbladder, pancreas, spleen, adrenal glands, kidneys, ureters, bladder, uterus, and aorta are unremarkable. No pathologic retroperitoneal lymphadenopathy. Osseous structures intact with minimal degenerative changes throughout the lumbar spine. No ventral or inguinal hernias pain Impression: 1. Chronic findings including left lower lobe calcified granuloma, small hiatal hernia, nonobstructing right renal micro-calculus, and degenerative spondylosis. 2. Remaining CT abdomen/pelvis with contrast exam continues to be negative.
== END 2023-11-22 20:55 | disposition home or self-care (01) ==
LOC: ED 17:56
DX: N39.0 Urinary tract infection, site not specified (principal); R10.31 Right lower quadrant pain; R35.0 Frequency of micturition; N20.0 Calculus of kidney; I10 Essential (primary) hypertension; E78.5 Hyperlipidemia, unspecified; E11.9 Type 2 diabetes mellitus without complications
CPT/HCPCS: 36000; 36415; 74177; 80053; 81001; 83690; 85025; 99284; A9270-GY

== ENCOUNTER 2024-05-28 03:45 | Emergency (ER) | payer BC ==
[2024-05-28 04:11] VITALS: RESP 18; TEMP 96.2; O2SAT 99
--- NOTE | 2024-05-28 04:13 | ERPHSYRPT ---
- History of Present Illness Time Seen by Provider: 05/28/24 04:11 Source: patient Exam Limitations: no limitations Patient Subjective Stated Complaint: pt states that she is thinks she has a UTI Triage Nursing Assessment: pt ambulated into the er; pt is axo x4; c/o urinary frequency; pt states 8/10 pain to lower abd; active bowels sounds in all quads; skin PDW; no respiratory distress present; vitals wnl Physician History: 54-year-old female presents to emergency department for evaluation of urinary frequency and urgency. Symptoms ongoing x 2 days. No fever no back pain. Patient has a history of UTI. Symptoms are similar. No trauma no nausea vomiting or diaphoresis. No vaginal discharge. Patient reports recent bout of loose stools. Patient recently diagnosed with diabetes. Diabetes currently managed by primary care physician. Patient otherwise feels well she voices no other complaints or concerns at this time. Patient declined pain medication Portions of this note were created with voice recognition technology. There may be grammatical, spelling, punctuation or sound alike errors Timing/Duration: yesterday Severity: moderate Modifying Factors: Improves With: nothing Associated Symptoms: denies symptoms Allergies/Adverse Reactions: acetaminophen [From Percocet] Allergy (Verified 05/28/24 03:55) hydrocodone [From Vicodin] Allergy (Verified 05/28/24 03:55) oxycodone [From Percocet] Allergy (Verified 05/28/24 03:55) Sulfa (Sulfonamide Antibiotics) Allergy (Verified 05/28/24 03:55) sulfamethoxazole [From Bactrim] Allergy (Verified 05/28/24 03:55) trimethoprim [From Bactrim] Allergy (Verified 05/28/24 03:55) Home Medications: Duloxetine HCl 30 mg PO DAILY 08/15/18 [History] Furosemide 20 mg [Lasix 20 mg] 20 mg PO DAILY 08/15/18 [History] Thyroid,Pork [Thyroid] 60 mg PO DAILY 08/15/18 [History] Metoprolol Succinate 50 mg PO DAILY 05/08/19 [History] Hydroxyzine HCl 25 mg [Atarax 25 mg] 25 mg PO TID 11/13/22 [History] Atorvastatin Calcium [Lipitor 20MG Tablet] 40 mg PO DAILY 11/22/23 [History] Biotin 10,000 mcg PO DAILY 05/28/24 [History] Duloxetine HCl 60 mg PO DAILY 05/28/24 [History] Ergocalciferol (Vitamin D2) [Vitamin D2] 50,000 unit PO Q7D 05/28/24 [History] Hydroxyzine HCl 25 mg [Atarax 25 mg] 25 mg PO TID 05/28/24 [History] Lisinopril/Hydrochlorothiazide [Lisinopril-Hctz 10-12.5 mg Tab] 1 each PO DAILY 05/28/24 [History] Metformin HCl [Metformin HCl ER] 1,000 mg PO DAILY 05/28/24 [History] Naltrexone HCl [Lotrexone] 4.5 mg PO DAILY 05/28/24 [History] Thyroid,Pork [Thyroid] 30 mg PO DAILY 05/28/24 [History] Hx Tetanus, Diphtheria Vaccination/Date Given: No Hx Influenza Vaccination/Date Given: No Hx Pneumococcal Vaccination/Date Given: No Travel Risk - International Travel Have you traveled outside of the country in past 3 weeks: No - Emerging Infectious Disease Are you exhibiting symptoms associated with any current EIDs: No Symptoms: Abdominal Pain - Review of Systems Constitutional: No Symptoms, No Fever, No Chills Eyes: No Symptoms Ears, Nose, & Throat: No Symptoms Respiratory: No Symptoms, No Cough, No Dyspnea Cardiac: No Symptoms, No Chest Pain, No Edema, No Syncope Abdominal/Gastrointestinal: No Symptoms, No Abdominal Pain, No Nausea, No Vomiting, No Diarrhea Genitourinary Symptoms: No Symptoms, No Dysuria Musculoskeletal: No Symptoms, No Back Pain, No Neck Pain Skin: No Symptoms, No Rash Neurological: No Symptoms, No Dizziness, No Focal Weakness, No Sensory Changes Psychological: No Symptoms Endocrine: No Symptoms Hematologic/Lymphatic: No Symptoms Immunological/Allergic: No Symptoms All Other Systems: Reviewed and Negative - Past Medical History Pertinent Past Medical History: Yes Neurological History: No Pertinent History Cardiac History: High Cholesterol, Hypertension Respiratory History: Bronchitis Endocrine Medical History: Diabetes Type II, Hyperthyroidism Musculoskeletal History: Fibromyalgia, Other Other Medical History: Per pt had echocardiogram and showed pericarditis. Not active or treated. mixed connective tissue disorder,lupus - Past Surgical History Past Surgical History: Yes Female Surgical History: Tubal Ligation - Female History Hx Now: No - Social History Smoking Status: Current some day smoker How long have you smoked: 1/2 Exposure to second hand smoke: Yes Drug Use: marijuana Patient Lives Alone: No - Social Determinants of Health Will the patient participate in the screening: Declined to provide - Nursing Vital Signs Nursing Vital Signs: Initial Vital Signs Temperature 96.2 F 05/28/24 04:06 Pulse Rate 89 05/28/24 04:06 Respiratory Rate 18 05/28/24 04:06 Blood Pressure 145/84 05/28/24 04:06 O2 Sat by Pulse Oximetry 99 05/28/24 04:06 Pain Scale Pain Intensity 8 - Physical Exam General Appearance: no apparent distress, alert Eye Exam: PERRL/EOMI, eyes nml inspection Ears, Nose, Throat Exam: normal ENT inspection, moist mucous membranes Neck Exam: normal inspection, full range of motion Respiratory Exam: normal breath sounds, lungs clear, No respiratory distress Cardiovascular Exam: regular rate/rhythm, normal heart sounds, normal peripheral pulses Gastrointestinal/Abdomen Exam: soft, normal bowel sounds, No tenderness, No mass Back Exam: normal inspection, normal range of motion, No CVA tenderness, No vertebral tenderness Extremity Exam: normal inspection, normal range of motion, pelvis stable Neurologic Exam: alert, oriented x 3, cooperative, normal mood/affect, nml cerebellar function, nml station & gait, sensation nml, No motor deficits Skin Exam: normal color, warm, dry, No rash Lymphatic Exam: No adenopathy SpO2 Interpretation: normal SpO2: 99 O2 Delivery: Room Air - Course Nursing assessment & vital signs reviewed: Yes Ordered Tests: Active Orders 24 hr Category Date Time Status CULTURE,URINE Stat Lab 05/28/24 04:06 Received UA W/RFX UR CULTURE Stat Lab 05/28/24 Completed Medication Summary Discontinued Medications Generic Name Dose Route Start Last Admin Trade Name Freq PRN Reason Stop Dose Admin Ceftriaxone Sodium 1,000 mg 05/28/24 05:04 Ceftriaxone Sodium 1000 Mg Inj Vial IM 05/28/24 05:05 STAT ONE Lab/Rad Data: Laboratory Results 05/28/24 Range/Units Unknown Urine Color Yellow (Yellow) Urine Appearance Cloudy A (Clear) Urine pH 5.5 (4.6-8.0) Ur Specific [place] 1.020 (1.005-1.030) Urine Protein 30 (Negative) Urine Glucose (UA) Negative (Negative) mg/dL Urine Ketones Trace A (Negative) Urine Blood Large A (Negative) Urine Nitrite Positive A (Negative) Urine Bilirubin Negative (Negative) Urine Urobilinogen 1.0 A (0.2) mg/dL Ur Leukocyte Esterase Large A (Negative) U Hyaline Cast (Auto) 3-5 A (0-2) /LPF Urine Microscopic RBC 21-50 A (0-5) /HPF Urine Microscopic WBC >100 A (0-5) /HPF Ur Epithelial Cells None Seen (None Seen) /HPF Urine Bacteria Few A (None Seen) /HPF Urine Culture Reflexed ORDERED SEPARATELY (NO) - Progress Progress: improved Progress Note: 54-year-old female presents to our ED with urinary symptomology. Urinalysis reveals a significant urinary tract infection. No systemic manifestations. Patient declined pain medication. Patient received a 1 g dose of Rocephin. A prescription for Keflex forwarded to patient's pharmacy. Patient agrees to follow-up with her primary care doctor within 48 hours for reevaluation. She voices no other complaints or concerns at this time. Complexity of problem addressed is moderate acute complicated. No critical care time. Complexity of data reviewed and analyzed is moderate. Test ordered chest reviewed results analyzed and correlated clinically with history and physical exam. Risk of complication and or risk of morbidity/mortality of patient management is moderate. A prescription for Keflex for the patient's pharmacy. Vital stable. Time spent to discharge patient is approximately 15 minutes. Plan of care established for shared decision making. No social determinants felt present to impede follow-up. Portions of this note were created with voice recognition technology. There may be grammatical, spelling, punctuation or sound alike errors 05/28/24 05:14 Counseled pt/family regarding: lab results, diagnosis, need for follow-up - Departure Departure Disposition: Home Clinical Impression: UTI (urinary tract infection) Condition: Stable Critical Care Time: No Referrals: JIA TOUSSAINT DO [Primary Care Provider] - Follow up/PCP as directed Prescriptions: Cephalexin Mh 500 mg [Keflex 500 mg] 500 mg PO TID 7 Days #21 cap
[2024-05-28 04:38] LABS: Appearance Cloudy (Clear); Bacteria Few /HPF (None Seen); Bilirubin Negative (Negative); Blood Large (Negative); Epithelial Cells None Seen /HPF (None Seen); Glucose, Urine Negative (Negative); Ketones Trace (Negative); Leukocyte Esterase Large (Negative); Nitrite Positive (Negative); Ph 5.5 (4.6-8.0); Protein,Urine Dip 30 (Negative); RBC 21-50 /HPF (0-5); WBC >100 /HPF (0-5)
[2024-05-28] MEDS ORDERED: Rocephin 1000 MG INJ ONE (05:15)
[2024-05-28] MEDS ORDERED: XYLOCAINE 1% HCL 20 ML MDV ONE (05:16)
[2024-05-28] MEDS: Rocephin 1000 MG INJ IM ONE (05:17)
[2024-05-28 05:43] VITALS: BP 128/89; PULSE 84
== END 2024-05-28 05:43 | disposition home or self-care (01) ==
LOC: ED 03:45
DX: N39.0 Urinary tract infection, site not specified (principal); R35.0 Frequency of micturition; E11.9 Type 2 diabetes mellitus without complications; E78.5 Hyperlipidemia, unspecified; I10 Essential (primary) hypertension; Z79.84 Long term (current) use of oral hypoglycemic drugs; Z79.899 Other long term (current) drug therapy; Z72.0 Tobacco use
CPT/HCPCS: 81001; 87077; 87086; 87186; 96372; 99283; J0696